=== PATIENT | female | born 1965 | race Caucasian/White ===

== ENCOUNTER 2017-09-25 12:38 | Emergency (ER) | payer BC ==
[~2017-09-25] VITALS: Ht 172.7 cm; Wt 79.1 kg
[2017-09-25 12:40] VITALS: Ht 172.7 cm; Wt 79.1 kg
[2017-09-25] MEDS ORDERED: SOD CHLORIDE 0.9% 1,000 ML IV STA (12:45)
[2017-09-25] MEDS ORDERED: ONDANSETRON 4 MG INJ IV STA (12:45)
[2017-09-25] MEDS ORDERED: SYN15 PO (13:43)
[2017-09-25] MEDS ORDERED: PANT40TA4 PO (13:44)
[2017-09-25] MEDS ORDERED: ASPI81TA3 PO (13:45)
[2017-09-25] MEDS ORDERED: PRED1TAB2 PO (13:45)
[2017-09-25] MEDS ORDERED: BUPR300T48 PO (13:46)
[2017-09-25] MEDS ORDERED: BUPR1PAT10 TD (13:46)
[2017-09-25] MEDS ORDERED: GABA100C14 PO (13:47)
[2017-09-25] MEDS ORDERED: RANI150T5 PO ×2 (13:48→13:53)
[2017-09-25] MEDS ORDERED: HYDR-902 PO (13:48)
[2017-09-25] MEDS ORDERED: LORA1TAB PO (13:54)
[2017-09-25] MEDS ORDERED: TIZA4TAB PO (13:55)
[2017-09-25] MEDS ORDERED: LUN1 PO (13:56)
[2017-09-25] MEDS ORDERED: ONDA4TAB95 PO (13:59)
[2017-09-25] MEDS ORDERED: LACT1CAP56 PO (13:59)
--- NOTE | 2017-09-25 15:05 | ERD ---
ER Documentation Chief Complaint Chief Complaint pt here for low blood sugar while at work; became aloc at work HPI This is a 52-year-old female who presents to the ER for evaluation of low blood sugar. This patient was brought in by EMS after she started complaining of weakness at work. The patient states that she is not diabetic, is not on insulin, is not taking any medication for hyperglycemia. She states that she has had a previous gastric bypass and since having a gastric bypass approximately 7 years ago she periodically has low blood sugar. She states that she did feel weak however she thought she can hold off on eating. She states that she normally carries oral glucose tablets with her and states that she "thought she could wait". She states that she then began feeling weak and when EMS arrived they stated they gave her D10 and she never lost consciousness. Patient has no complaints at this time ROS All systems reviewed and are negative except as per history of present illness. Medications Home Meds Reported Medications Lactobacillus Combo No.11 (Probiotic) 1 Each Cap.sprink, 1 CAP PO DAILY, CAP 09/25/17 Ondansetron Hcl* (Ondansetron Hcl*) 4 Mg Tablet, 4-8 MG PO Q4H Y for NAUSEA AND OR VOMITING, TAB 09/25/17 Eszopiclone (Lunesta) 1 Mg Tablet, 1-2 MG PO HS Y for INSOMNIA, TAB 09/25/17 Tizanidine Hcl* (Tizanidine Hcl*) 4 Mg Tablet, 4-8 MG PO Q8H Y for SPASTICITY, TAB 09/25/17 Lorazepam* (Lorazepam*) 1 Mg Tablet, 1 MG PO QHS Y for ANXIETY, #30 TAB 09/25/17 Ranitidine Hcl* (Ranitidine Hcl*) 150 Mg Tablet, 150 MG PO HS, #30 TAB 09/25/17 Hydrocodone/Acetaminophen ([place] 10-325 Tablet) 1 Each Tablet, 1 EACH PO Q6 Y for SEVERE PAIN LEVEL 7-10, TAB 09/25/17 Gabapentin* (Gabapentin*) 100 Mg Capsule, 100 MG PO TID, #90 CAP 09/25/17 Buprenorphine (Butrans) 1 Each Patch.tdwk, 1 EACH TD WEEKLY 09/25/17 Bupropion Hcl* (Wellbutrin XL*) 300 Mg Tab.sr.24h, 300 MG PO DAILY, TAB.SA 09/25/17 Aspirin* (Aspirin* Chew) 81 Mg Tab.chew, 81 MG PO DAILY, TAB.CHEW 09/25/17 Prednisone* (Prednisone*) 1 Mg Tablet, 2 MG PO QAM, TAB 09/25/17 Pantoprazole* (Pantoprazole*) 40 Mg Tablet.dr, 40 MG PO AC BREAKFAST, TAB 09/25/17 Levothyroxine Sodium* (Synthroid*) 150 Mcg Tablet, 150 MCG PO BEFORE BREAKFAST, #30 TAB 09/25/17 Discontinued Reported Medications Ranitidine Hcl* (Ranitidine Hcl*) 150 Mg Tablet, 150 MG PO HS, #30 TAB 09/25/17 Allergies Allergies: Coded Allergies: No Known Allergy (Unverified , 09/25/17) PMhx/Soc History of Surgery: Yes (gastric, ) Hx Psychiatric Problems: No Hx Miscellaneous Medical Probl: No Hx Alcohol Use: No Hx Substance Use: No Hx Tobacco Use: No Smoking Status: Never smoker Physical Exam Vitals Vital Signs Date Time Temp Pulse Resp B/P Pulse Ox O2 Delivery O2 Flow Rate FiO2 09/25/17 12:40 97.8 89 18 155/97 100 Physical Exam Const: No acute distress Head: Atraumatic Eyes: Normal Conjunctiva ENT: Normal External Ears, Nose and Mouth. Neck: Full range of motion..~ No meningismus. Resp: Clear to auscultation bilaterally Cardio: Regular rate and rhythm, no murmurs Abd: Soft, non tender, non distended. Normal bowel sounds Skin: No petechiae or rashes Back: No midline or flank tenderness Ext: No cyanosis, or edema Neur: Awake and alert Psych: Normal Mood and Affect Result Diagram: 09/25/17 1250 09/25/17 1250 Results 24 hrs Laboratory Tests Test 09/25/17 12:50 09/25/17 14:26 09/25/17 14:57 White Blood Count 3.310^3/ul Red Blood Count 3.9210^6/ul Hemoglobin 11.8g/dl Hematocrit 37.0% Mean Corpuscular Volume 94.4fl Mean Corpuscular Hemoglobin 30.1pg Mean Corpuscular Hemoglobin Concent 31.9g/dl Red Cell Distribution Width 12.3% Platelet Count 04781^3/UL Mean Platelet Volume 10.9fl Neutrophils % 58.4% Lymphocytes % 29.1% Monocytes % 10.1% Eosinophils % 1.5% Basophils % 0.6% Nucleated Red Blood Cells % 0.0/100WBC Neutrophils # 1.910^3/ul Lymphocytes # 1.010^3/ul Monocytes # 0.310^3/ul Eosinophils # 0.110^3/ul Basophils # 0.010^3/ul Nucleated Red Blood Cells # 0.010^3/ul Sodium Level 145mmol/L Potassium Level 3.7mmol/L Chloride Level 108mmol/L Carbon Dioxide Level 27mmol/L Anion Gap 14 Blood Urea Nitrogen 14mg/dl Creatinine 0.78mg/dl Glucose Level 68mg/dl Calcium Level 8.6mg/dl Total Bilirubin 0.2mg/dl Direct Bilirubin 0.00mg/dl Indirect Bilirubin 0.2mg/dl Aspartate Amino Transf (AST/SGOT) 26IU/L Alanine Aminotransferase (ALT/SGPT) 33IU/L Alkaline Phosphatase 55IU/L Total Protein 6.9g/dl Albumin 4.5g/dl Globulin 2.40g/dl Albumin/Globulin Ratio 1.87 Lipase 36U/L Bedside Glucose 76mg/dL 80mg/dL Current Medications Medications (Trade) Dose Ordered Sig/Radha Route PRN Reason Start Time Stop Time Status Last Admin Dose Admin Sodium Chloride (NS) 1,000 ml @ 1,000 mls/hr Q1H STAT IV 09/25/17 12:45 09/25/17 13:44 DC 09/25/17 12:59 Ondansetron HCl (Zofran Inj) 4 mg ONCE STAT IV 09/25/17 12:45 09/25/17 12:46 DC 09/25/17 12:59 Procedures/MDM This 52-year-old female presents to the ER for evaluation of hypoglycemia. On my evaluation she is alert oriented to person place and time, she is not diaphoretic, the patient denies being on any oral hypoglycemic agents, she is now insulin and is not diabetic. The patient was given D10 prior to arrival with complete resolution of her weakness. The patient had lab work drawn in the ER which shows a blood sugar of 67, the patient was given complex carbohydrates, sandwich, juice, and the patient's blood sugar was checked 1 hour later and that was many 6. The patient is asymptomatic at this time and repeat blood sugar shows a blood sugar 79. This patient will be discharged at this time. Departure Diagnosis: Primary Impression: Hypoglycemia Condition: Stable ELIEZER BUSTILLOS DO Sep 25, 2017 15:05
== END 2017-09-25 14:59 | disposition home or self-care (01) ==
LOC: E/R 12:38
DX: E16.2 Hypoglycemia, unspecified (principal); Z79.82 Long term (current) use of aspirin
CPT/HCPCS: 80053; 82962; 83690; 85025; J2405; J7030; 36415; 96374